=== PATIENT | female | born 1955 | race Caucasian/White ===

== ENCOUNTER 2018-11-30 14:56 | Emergency (ER) | payer OTHER, MEDICAID ==
[~2018-11-30] VITALS: Ht 162.6 cm; Wt 65.8 kg
[2018-11-30 14:56] VITALS: BP_SYST 135
[2018-11-30 15:47] LABS: BASOPHILS % (AUTO) 0.9 % (0.0-2.0); EOSINOPHILS # (AUTO) 0.1 K/uL (0.0-0.4); EOSINOPHILS % (AUTO) 2.5 % (0.0-4.0); HEMATOCRIT 36.4 % (36-48); HEMOGLOBIN 11.4 g/dL (12.0-16.0); LYMPHOCYTES # (AUTO) 0.9 K/uL (1.0-5.5); LYMPHOCYTES % (AUTO) 18.5 % (20.5-51.5); MEAN CORPUSCULAR HEMOGLOBIN 31 pg (27-31); MEAN CORPUSCULAR HGB CONC 31 % (32-36); MEAN CORPUSCULAR VOLUME 99 fL (79.0-98.0); MONOCYTES # (AUTO) 0.3 K/uL (0.0-1.0); NEUTROPHILS # (AUTO) 3.5 K/uL (1.8-7.7); NEUTROPHILS % (AUTO) 71.1 % (40.0-70.0); PLATELET COUNT (AUTO) 136 K/uL (130-430); RED BLOOD CELL COUNT(AUTO) 3.69 MIL/uL (4.2-6.2); RED CELL DISTRIBUTION WIDTH 18.7 % (9.0-15.0); WHITE BLOOD COUNT (AUTO) 4.9 K/uL (4.8-10.8)
[2018-11-30 15:52] LABS: ANION GAP 8 (5-15); CALCIUM 8.4 mg/dL (8.4-11.0); CHLORIDE 102 mmol/L (98-107); CREATININE 1.03 mg/dL (0.55-1.30); GLUCOSE 74 mg/dL (70-99); POTASSIUM 3.9 mmol/L (3.5-5.1); SODIUM SERUM 140 mmol/L (136-145); UREA NITROGEN, BLOOD 13 mg/dL (8-21)
[2018-11-30 15:58] LABS: GFR AFRICAN AMERICAN 69 mL/min (>90)
[2018-11-30 16:00] LABS: ALANINE AMINOTRANSFERASE 12 U/L (12-78); ALBUMIN 3.1 g/dL (3.4-4.8); ASPARTATE AMINOTRANSFERASE 29 U/L (10-37); TOTAL BILIRUBIN 0.7 mg/dL (0.0-1.0)
[2018-11-30 18:15] VITALS: BP_SYST 133
== END 2018-11-30 18:15 | disposition home or self-care (01) ==
LOC: SED 14:56
DX: G40.909 Epilepsy, unspecified, not intractable, without status epilepticus (principal); R21 Rash and other nonspecific skin eruption; R60.0 Localized edema; Z88.8 Allergy status to other drugs, medicaments and biological substances
CPT/HCPCS: 36415; 71045; 80053; 80164-TC; 82550-TC; 83735-TC; 84484; 85025; 93005; 99284

== ENCOUNTER 2020-07-21 17:14 | Inpatient (IN) | payer OTHER, MEDICAID ==
[~2020-07-21] VITALS: Ht 160 cm; Wt 87.5 kg
[2020-07-21 17:14] VITALS: BP_SYST 151
[~2020-07-21 17:14] MED LIST: AMIO200T66 PO; ASCO500T20 PO; BLOO-360 XX; CEFAZOLIN 2 GM IVPB PREMIX 50 ML IV ONE; DOCU250C14 PO; LR 1,000 ML IV.SOLN IV ONE; MEGE20TA6 PO; MIDAZOLAM HCL 5 MG/5 ML VIAL IVP ONE; MORP-92 PO; MORP15TA PO; MULT-1100 PO; PRO40 PO; PROPOFOL 200MG/ 20ML VIAL (DIPRIVAN) IV ONE; ROCURONIUM BROMIDE 10 MG/ML (ZEMURON) IV ONE; SEVOFLURANE 15 MIN GAS INH ONE; ePHEDrine sulfate 50 MG/ML VIAL IVP ONE; fentaNYL CITRATE/PF 100 MCG/2 ML AMP IVP ONE
[2020-07-21] MEDS ORDERED: ASPIRIN 325 MG TABLET PO ONE (17:30)
[2020-07-21 18:15] LABS: BILIRUBIN,URINE NEGATIVE (NEGATIVE); BLOOD, URINE 1+ (NEGATIVE); COLOR,URINE YELLOW (YELLOW); GLUCOSE,URINE NEGATIVE (NEGATIVE); KETONES,URINE NEGATIVE (NEGATIVE); LEUKOCYTE ESTERASE ,URINE 3+ (NEGATIVE); NITRITE, URINE NEGATIVE (NEGATIVE); PH,URINE 6.5 (5.0-8.0); PROTEIN URINE TRACE (NEGATIVE); UROBILINOGEN,URINE 0.2 (0.2-1.0)
[2020-07-21 18:23] LABS: BASOPHILS % (AUTO) 0.8 % (0.0-2.0); CALCIUM 8.1 mg/dL (8.4-11.0); CREATININE 0.86 mg/dL (0.55-1.30); EOSINOPHILS # (AUTO) 0.1 K/uL (0.0-0.4); EOSINOPHILS % (AUTO) 1.8 % (0.0-4.0); HEMOGLOBIN 9.5 g/dL (12.0-16.0); LYMPHOCYTES # (AUTO) 0.8 K/uL (1.0-5.5); MEAN CORPUSCULAR HEMOGLOBIN 29 pg (27-31); MEAN CORPUSCULAR HGB CONC 31 % (32-36); MEAN CORPUSCULAR VOLUME 94 fL (79.0-98.0); MONOCYTES # (AUTO) 0.5 K/uL (0.0-1.0); NEUTROPHILS % (AUTO) 68.4 % (40.0-70.0); PLATELET COUNT (AUTO) 161 K/uL (130-430); POTASSIUM 3.5 mmol/L (3.5-5.1); RED BLOOD CELL COUNT(AUTO) 3.31 MIL/uL (4.2-6.2); WHITE BLOOD COUNT (AUTO) 4.4 K/uL (4.8-10.8)
[2020-07-21 18:29] LABS: ALBUMIN 2.8 g/dL (3.4-4.8); PHOSPHORUS 3.5 mg/dL (2.7-4.5); TOTAL BILIRUBIN 0.6 mg/dL (0.0-1.0)
[2020-07-21 18:39] LABS: CLARITY/URINE HAZY (CLEAR)
[2020-07-21 18:41] LABS: BACTERIA,URINE MANY /HPF (None Seen); WBC,URINE >100 /HPF (0-3)
[2020-07-21 18:42] LABS: MUCUS,URINE 2+ /LPF (None Seen); YEAST,URINE Few /HPF (None Seen)
[2020-07-21] MEDS ORDERED: IOHEXOL 350 mgI/mL, 150 ML INFUS..BTL IV ONE (19:46)
[2020-07-21] MEDS ORDERED: VANCOMYCIN HCL 1,000 MG in NS 250 ML IV ONE (20:15)
[2020-07-21] MEDS ORDERED: PIPERACILLIN/TAZO 3.375 GM in NS 50 ML IV ONE (20:15)
[2020-07-21] MEDS ORDERED: PIPERACILLIN/TAZOBACTAM 3.375 GM/VIAL (ZOSYN) IV ONE (20:55)
[2020-07-21] MEDS ORDERED: VANCOMYCIN HCL 1000 MG/VIAL IV ONE (20:56)
[2020-07-21] MEDS ORDERED: ACET325C5 PO (21:25)
[2020-07-21] MEDS ORDERED: SENN8.6T19 PO (21:25)
[2020-07-21] MEDS ORDERED: MOM PO (21:25)
[2020-07-21] MEDS ORDERED: ACET-73 PO (21:25)
[2020-07-21] MEDS ORDERED: L.RH1CAP PO (21:25)
[2020-07-21 23:11] VITALS: BP_SYST 121
[2020-07-22 00:14] VITALS: BP_SYST 121
[2020-07-22] MEDS ORDERED: MORPHINE 2 MG/ML INJ. SYRINGE IVP PRN (00:15)
[2020-07-22] MEDS ORDERED: MORPHINE 2 MG/ML INJ. SYRINGE ONE ×2 (00:23→04:36)
[2020-07-22] MEDS: MORPHINE 2 MG/ML INJ. SYRINGE IVP PRN ×5 (00:27→20:49)
[2020-07-22 08:34] VITALS: BP_SYST 139
[2020-07-22] MEDS ORDERED: MILK OF MAGNESIA 30 ML UDC PO PRN (09:45)
[2020-07-22] MEDS ORDERED: NALOXONE HCL 0.4 MG/ML AMP (NARCAN) IVP PRN (09:45)
[2020-07-22] MEDS ORDERED: HYDROcodone/ACETAMIN 5-325 MG TAB (NORCO/ VICODIN) PO PRN (09:45)
[2020-07-22] MEDS ORDERED: AMIODARONE HCL 200 MG TABLET PO ONE (10:15)
[2020-07-22] MEDS ORDERED: DOCUSATE SODIUM 250 MG CAPSULE PO ONE (10:15)
[2020-07-22] MEDS ORDERED: PANTOPRAZOLE SODIUM 40 MG TAB PO ONE (10:15)
[2020-07-22] MEDS ORDERED: ASCORBIC ACID 500 MG TABLET PO ONE (10:15)
[2020-07-22 11:45] VITALS: BP_SYST 132
[2020-07-22 16:50] VITALS: BP_SYST 155
[2020-07-22 20:00] VITALS: BP_SYST 146
[2020-07-22] MEDS: ASCORBIC ACID 500 MG TABLET PO SCH (20:43)
[2020-07-22] MEDS: DOCUSATE SODIUM 250 MG CAPSULE PO SCH (20:43)
[2020-07-22] MEDS: SENNOSIDES 8.6 MG TABLET PO SCH (20:44)
[2020-07-22] MEDS ORDERED: IPRATROPIUM/ALBUTEROL SULFATE 3 ML AMPUL.NEB (DUONEB) INH PRN (22:30)
[2020-07-22] MEDS ORDERED: levoFLOXacin 500 MG TABLET PO SCH (23:15)
[2020-07-23 00:15] VITALS: BP_SYST 144
[2020-07-23] MEDS: MORPHINE 2 MG/ML INJ. SYRINGE IVP PRN ×5 (00:25→20:44)
[2020-07-23 05:32] VITALS: BP_SYST 155
[2020-07-23 08:00] VITALS: BP_SYST 141
[2020-07-23] MEDS: DOCUSATE SODIUM 250 MG CAPSULE PO SCH ×2 (08:16→20:32)
[2020-07-23] MEDS: PANTOPRAZOLE SODIUM 40 MG TAB PO SCH (08:16)
[2020-07-23] MEDS: AMIODARONE HCL 200 MG TABLET PO SCH (08:16)
[2020-07-23] MEDS: ASCORBIC ACID 500 MG TABLET PO SCH ×2 (08:16→20:31)
[2020-07-23] MEDS: cefTRIAXone 1 GM in D5W 50 ML IV SCH (11:07)
[2020-07-23 12:00] VITALS: BP_SYST 146
[2020-07-23 16:34] VITALS: BP_SYST 143
[2020-07-23 20:30] VITALS: BP_SYST 145
[2020-07-23] MEDS: MUPIROCIN 2% TOPICAL OINTMENT 22 GM NS SCH (20:31)
[2020-07-23] MEDS: SENNOSIDES 8.6 MG TABLET PO SCH (20:33)
[2020-07-23] MEDS: levETIRAcetam 500 MG TABLET PO SCH (20:37)
[2020-07-24 00:30] VITALS: BP_SYST 145
[2020-07-24] MEDS: MORPHINE 2 MG/ML INJ. SYRINGE IVP PRN ×5 (02:30→21:39)
[2020-07-24 08:08] VITALS: BP_SYST 140
[2020-07-24] MEDS: ASCORBIC ACID 500 MG TABLET PO SCH ×2 (08:16→21:40)
[2020-07-24] MEDS: DOCUSATE SODIUM 250 MG CAPSULE PO SCH ×2 (08:16→21:40)
[2020-07-24] MEDS: PANTOPRAZOLE SODIUM 40 MG TAB PO SCH (08:16)
[2020-07-24] MEDS: levETIRAcetam 500 MG TABLET PO SCH ×2 (08:16→21:40)
[2020-07-24] MEDS: AMIODARONE HCL 200 MG TABLET PO SCH (08:17)
[2020-07-24] MEDS: MUPIROCIN 2% TOPICAL OINTMENT 22 GM NS SCH ×2 (08:26→21:41)
[2020-07-24] MEDS: cefTRIAXone 1 GM in D5W 50 ML IV SCH (11:01)
[2020-07-24 12:43] VITALS: BP_SYST 136
[2020-07-24] MEDS ORDERED: ENOXAPARIN SODIUM 60 MG/0.6 ML SYRINGE SUBCUT ONE (14:30)
[2020-07-24 16:00] VITALS: BP_SYST 138
[2020-07-24] MEDS ORDERED: FLUCONAZOLE 200 MG TABLET (DIFLUCAN) PO ONE (20:15)
[2020-07-24] MEDS: SENNOSIDES 8.6 MG TABLET PO SCH (21:00)
[2020-07-25 00:38] VITALS: BP_SYST 120
[2020-07-25] MEDS: MORPHINE 2 MG/ML INJ. SYRINGE IVP PRN ×6 (01:33→23:40)
[2020-07-25 06:40] LABS: BASOPHILS # (AUTO) 0.1 K/uL (0.0-0.2); BASOPHILS % (AUTO) 1.3 % (0.0-2.0); EOSINOPHILS # (AUTO) 0.2 K/uL (0.0-0.4); EOSINOPHILS % (AUTO) 4.1 % (0.0-4.0); HEMATOCRIT 31.9 % (36-48); HEMOGLOBIN 9.7 g/dL (12.0-16.0); LYMPHOCYTES % (AUTO) 21.9 % (20.5-51.5); MEAN CORPUSCULAR HEMOGLOBIN 29 pg (27-31); MEAN CORPUSCULAR HGB CONC 30 % (32-36); MEAN CORPUSCULAR VOLUME 94 fL (79.0-98.0); MONOCYTES # (AUTO) 0.5 K/uL (0.0-1.0); MONOCYTES % (AUTO) 10.9 % (1.7-9.3); NEUTROPHILS # (AUTO) 2.7 K/uL (1.8-7.7); NEUTROPHILS % (AUTO) 61.8 % (40.0-70.0); PLATELET COUNT (AUTO) 176 K/uL (130-430); WHITE BLOOD COUNT (AUTO) 4.4 K/uL (4.8-10.8)
[2020-07-25 06:54] LABS: INR 1.2 (0.8-1.2); PROTHROMBIN TIME 11.9 SECS (9.5-12.5)
[2020-07-25 07:32] LABS: ALBUMIN 2.6 g/dL (3.4-4.8); CREATININE 0.73 mg/dL (0.55-1.30); POTASSIUM 3.4 mmol/L (3.5-5.1); TOTAL BILIRUBIN 0.5 mg/dL (0.0-1.0)
[2020-07-25 08:00] VITALS: BP_SYST 140
[2020-07-25] MEDS: PANTOPRAZOLE SODIUM 40 MG TAB PO SCH (08:17)
[2020-07-25] MEDS: ASCORBIC ACID 500 MG TABLET PO SCH ×2 (08:17→20:07)
[2020-07-25] MEDS: AMIODARONE HCL 200 MG TABLET PO SCH (08:17)
[2020-07-25] MEDS: levETIRAcetam 500 MG TABLET PO SCH ×2 (08:17→20:06)
[2020-07-25] MEDS: MUPIROCIN 2% TOPICAL OINTMENT 22 GM NS SCH ×2 (08:21→20:07)
[2020-07-25] MEDS: DOCUSATE SODIUM 250 MG CAPSULE PO SCH ×2 (08:21→20:09)
[2020-07-25 12:13] VITALS: BP_SYST 155
[2020-07-25] MEDS ORDERED: MORPHINE 2 MG/ML INJ. SYRINGE IVP PRN (15:30)
[2020-07-25 16:08] VITALS: BP_SYST 139
[2020-07-25] MEDS ORDERED: POTASSIUM CHLORIDE 20 MEQ TAB.PRT.SR PO ONE (16:20)
[2020-07-25 20:00] VITALS: BP_SYST 140
[2020-07-25] MEDS: SENNOSIDES 8.6 MG TABLET PO SCH (20:09)
[2020-07-26] VITALS (12 sets, daily range): BP systolic 131–152
[2020-07-26] MEDS: MORPHINE 2 MG/ML INJ. SYRINGE IVP PRN ×2 (04:01→09:07)
[2020-07-26 05:34] LABS: INR 1.2 (0.8-1.2)
[2020-07-26 06:04] LABS: PROTHROMBIN TIME 12.7 SECS (9.5-12.5)
[2020-07-26 06:47] LABS: BASOPHILS # (AUTO) 0.1 K/uL (0.0-0.2); BASOPHILS % (AUTO) 1.4 % (0.0-2.0); EOSINOPHILS # (AUTO) 0.1 K/uL (0.0-0.4); EOSINOPHILS % (AUTO) 2.6 % (0.0-4.0); HEMATOCRIT 32.8 % (36-48); HEMOGLOBIN 9.9 g/dL (12.0-16.0); LYMPHOCYTES # (AUTO) 0.9 K/uL (1.0-5.5); LYMPHOCYTES % (AUTO) 19.4 % (20.5-51.5); MEAN CORPUSCULAR HEMOGLOBIN 28 pg (27-31); MEAN CORPUSCULAR HGB CONC 30 % (32-36); MEAN CORPUSCULAR VOLUME 94 fL (79.0-98.0); MONOCYTES # (AUTO) 0.4 K/uL (0.0-1.0); MONOCYTES % (AUTO) 9.3 % (1.7-9.3); NEUTROPHILS # (AUTO) 3.1 K/uL (1.8-7.7); NEUTROPHILS % (AUTO) 67.3 % (40.0-70.0); PLATELET COUNT (AUTO) 211 K/uL (130-430); RED CELL DISTRIBUTION WIDTH 17.5 % (9.0-15.0); WHITE BLOOD COUNT (AUTO) 4.7 K/uL (4.8-10.8)
[2020-07-26 06:51] LABS: CREATININE 0.78 mg/dL (0.55-1.30)
[2020-07-26] MEDS ORDERED: THROMBIN (BOVINE) 5000 UNITS/ VIAL TP ONE (14:54)
[2020-07-26] MEDS ORDERED: fentaNYL CITRATE/PF 100 MCG/2 ML AMP IVP PRN (15:15)
[2020-07-26] MEDS ORDERED: ONDANSETRON HCL 4 MG/2 ML VIAL IVP PRN ×2 (15:15→16:30)
[2020-07-26] MEDS ORDERED: NALOXONE HCL 0.4 MG/ML AMP (NARCAN) IVP PRN ×4 (16:30)
[2020-07-26] MEDS: KCL 20 mEq in D5NS 1000 mL 1,000 ML IV SCH (16:30)
[2020-07-26] MEDS ORDERED: ACETAMINOPHEN 325 MG TABLET PO PRN (16:30)
[2020-07-26] MEDS ORDERED: HYDROmorphone 1 MG/ML INJ. CARTRIDGE IVP PRN (16:30)
[2020-07-26] MEDS ORDERED: ZOLPIDEM TARTRATE 5 MG TABLET PO PRN (16:30)
[2020-07-26] MEDS: fentaNYL CITRATE/PF 100 MCG/2 ML AMP IVP PRN ×2 (17:05→17:10)
[2020-07-26] MEDS ORDERED: fentaNYL CITRATE/PF 100 MCG/2 ML AMP ONE (17:05)
[2020-07-26] MEDS: CEFAZOLIN 2 GM IVPB PREMIX 50 ML IV SCH (18:10)
[2020-07-26] MEDS: HYDROmorphone 2 MG/ML VIAL IVP PRN ×2 (18:12→21:57)
[2020-07-26] MEDS: DOCUSATE SODIUM 100 MG CAPSULE PO SCH (21:00)
[2020-07-26] MEDS: ASCORBIC ACID 500 MG TABLET PO SCH (21:00)
[2020-07-26] MEDS: levETIRAcetam 500 MG TABLET PO SCH (21:00)
[2020-07-26] MEDS: SENNOSIDES 8.6 MG TABLET PO SCH (21:00)
[2020-07-26] MEDS: MUPIROCIN 2% TOPICAL OINTMENT 22 GM NS SCH (23:49)
[2020-07-27] VITALS (20 sets, daily range): BP systolic 115–146
[2020-07-27] MEDS: HYDROmorphone 1 MG/ML INJ. CARTRIDGE IVP PRN ×3 (00:20→21:20)
[2020-07-27] MEDS: CEFAZOLIN 2 GM IVPB PREMIX 50 ML IV SCH ×2 (00:30→08:48)
[2020-07-27] MEDS: KCL 20 mEq in D5NS 1000 mL 1,000 ML IV SCH ×3 (03:26→20:51)
[2020-07-27] MEDS: HYDROmorphone 2 MG/ML VIAL IVP PRN ×3 (03:35→14:23)
[2020-07-27 05:38] LABS: CALCIUM 7.9 mg/dL (8.4-11.0); CREATININE 1.1 mg/dL (0.55-1.30); POTASSIUM 4.5 mmol/L (3.5-5.1)
[2020-07-27 05:39] LABS: BASOPHILS # (AUTO) 0.1 K/uL (0.0-0.2); BASOPHILS % (AUTO) 0.6 % (0.0-2.0); EOSINOPHILS % (AUTO) 0.4 % (0.0-4.0); HEMATOCRIT 37.4 % (36-48); HEMOGLOBIN 11.1 g/dL (12.0-16.0); LYMPHOCYTES # (AUTO) 0.4 K/uL (1.0-5.5); MEAN CORPUSCULAR HEMOGLOBIN 28 pg (27-31); MEAN CORPUSCULAR HGB CONC 30 % (32-36); MEAN CORPUSCULAR VOLUME 95 fL (79.0-98.0); MONOCYTES # (AUTO) 0.7 K/uL (0.0-1.0); MONOCYTES % (AUTO) 7.5 % (1.7-9.3); NEUTROPHILS # (AUTO) 8.6 K/uL (1.8-7.7); NEUTROPHILS % (AUTO) 87.5 % (40.0-70.0); PLATELET COUNT (AUTO) 215 K/uL (130-430); RED BLOOD CELL COUNT(AUTO) 3.95 MIL/uL (4.2-6.2); RED CELL DISTRIBUTION WIDTH 18.2 % (9.0-15.0); WHITE BLOOD COUNT (AUTO) 9.8 K/uL (4.8-10.8)
[2020-07-27] MEDS: DOCUSATE SODIUM 100 MG CAPSULE PO SCH ×2 (08:48→20:49)
[2020-07-27] MEDS: ASCORBIC ACID 500 MG TABLET PO SCH ×2 (08:49→20:49)
[2020-07-27] MEDS: AMIODARONE HCL 200 MG TABLET PO SCH (08:49)
[2020-07-27] MEDS: PANTOPRAZOLE SODIUM 40 MG TAB PO SCH (08:49)
[2020-07-27] MEDS: levETIRAcetam 500 MG TABLET PO SCH ×2 (09:20→20:49)
[2020-07-27] MEDS: MUPIROCIN 2% TOPICAL OINTMENT 22 GM NS SCH ×2 (09:21→20:50)
[2020-07-27] MEDS ORDERED: CARVEDILOL 6.25 MG TABLET (COREG) PO ONE (11:15)
[2020-07-27] MEDS: SENNOSIDES 8.6 MG TABLET PO SCH (20:49)
[2020-07-27] MEDS: CARVEDILOL 6.25 MG TABLET (COREG) PO SCH (20:59)
[2020-07-28] VITALS: BP_SYST 106
[2020-07-28] MEDS: HYDROmorphone 1 MG/ML INJ. CARTRIDGE IVP PRN ×2 (03:30→20:41)
[2020-07-28] MEDS: methocarbamoL 500 MG TABLET PO PRN (05:49)
[2020-07-28] MEDS: KCL 20 mEq in D5NS 1000 mL 1,000 ML IV SCH ×2 (08:30→16:02)
[2020-07-28] MEDS: ASCORBIC ACID 500 MG TABLET PO SCH ×2 (08:45→20:28)
[2020-07-28] MEDS: CARVEDILOL 6.25 MG TABLET (COREG) PO SCH ×2 (08:47→20:29)
[2020-07-28] MEDS: DOCUSATE SODIUM 100 MG CAPSULE PO SCH ×2 (08:47→20:28)
[2020-07-28] MEDS: levETIRAcetam 500 MG TABLET PO SCH ×2 (08:48→20:28)
[2020-07-28] MEDS: AMIODARONE HCL 200 MG TABLET PO SCH (08:48)
[2020-07-28] MEDS: PANTOPRAZOLE SODIUM 40 MG TAB PO SCH (08:48)
[2020-07-28] MEDS: HYDROmorphone 2 MG/ML VIAL IVP PRN (08:51)
[2020-07-28] MEDS: MUPIROCIN 2% TOPICAL OINTMENT 22 GM NS SCH (08:58)
[2020-07-28] MEDS: HYDROcodone/ACETAMIN 10-325 MG TAB PO PRN (11:18)
[2020-07-28 19:45] VITALS: BP_SYST 105
[2020-07-28] MEDS: SENNOSIDES 8.6 MG TABLET PO SCH (20:28)
[2020-07-29 00:08] VITALS: BP_SYST 106
[2020-07-29] MEDS: KCL 20 mEq in D5NS 1000 mL 1,000 ML IV SCH ×2 (03:23→14:59)
[2020-07-29] MEDS: HYDROmorphone 1 MG/ML INJ. CARTRIDGE IVP PRN ×2 (03:27→08:58)
[2020-07-29 08:35] VITALS: BP_SYST 110
[2020-07-29] MEDS: ASCORBIC ACID 500 MG TABLET PO SCH ×2 (08:56→21:55)
[2020-07-29] MEDS: CARVEDILOL 6.25 MG TABLET (COREG) PO SCH ×2 (08:56→21:00)
[2020-07-29] MEDS: PANTOPRAZOLE SODIUM 40 MG TAB PO SCH (08:56)
[2020-07-29] MEDS: AMIODARONE HCL 200 MG TABLET PO SCH (08:56)
[2020-07-29] MEDS: levETIRAcetam 500 MG TABLET PO SCH ×2 (08:56→21:55)
[2020-07-29] MEDS: DOCUSATE SODIUM 100 MG CAPSULE PO SCH ×3 (09:00→21:55)
[2020-07-29 11:49] VITALS: BP_SYST 122
[2020-07-29 13:01] VITALS: BP_SYST 122
[2020-07-29] MEDS: HYDROcodone/ACETAMIN 10-325 MG TAB PO PRN ×3 (14:42→22:19)
[2020-07-29 16:02] VITALS: BP_SYST 108
[2020-07-29 20:00] VITALS: BP_SYST 98
[2020-07-29] MEDS: SENNOSIDES 8.6 MG TABLET PO SCH (21:55)
[2020-07-29 22:53] LABS: BILIRUBIN,URINE NEGATIVE (NEGATIVE); BLOOD, URINE 3+ (NEGATIVE); CLARITY/URINE SL CLOUDY (CLEAR); COLOR,URINE YELLOW (YELLOW); GLUCOSE,URINE NEGATIVE (NEGATIVE); KETONES,URINE TRACE (NEGATIVE); LEUKOCYTE ESTERASE ,URINE 1+ (NEGATIVE); NITRITE, URINE NEGATIVE (NEGATIVE); PROTEIN URINE 3+ (NEGATIVE); UROBILINOGEN,URINE 0.2 (0.2-1.0)
[2020-07-29 23:07] LABS: WBC,URINE 20-50 /HPF (0-3)
[2020-07-29 23:08] LABS: BACTERIA,URINE MANY /HPF (None Seen); YEAST,URINE Many /HPF (None Seen)
[2020-07-29 23:09] LABS: COARSE GRANULAR CASTS,URINE 0-10 /LPF (None Seen); MUCUS,URINE 1+ /LPF (None Seen)
[2020-07-30] MEDS: KCL 20 mEq in D5NS 1000 mL 1,000 ML IV SCH ×2 (00:52→10:51)
[2020-07-30] MEDS: HYDROmorphone 1 MG/ML INJ. CARTRIDGE IVP PRN (01:03)
[2020-07-30 01:11] VITALS: BP_SYST 108
[2020-07-30 08:08] VITALS: BP_SYST 97
[2020-07-30] MEDS: ASCORBIC ACID 500 MG TABLET PO SCH ×2 (08:53→21:40)
[2020-07-30] MEDS: PANTOPRAZOLE SODIUM 40 MG TAB PO SCH (08:53)
[2020-07-30] MEDS: levETIRAcetam 500 MG TABLET PO SCH ×2 (08:53→21:40)
[2020-07-30] MEDS: FLUCONAZOLE 100 MG TABLET (DIFLUCAN) PO SCH (08:53)
[2020-07-30] MEDS: CARVEDILOL 6.25 MG TABLET (COREG) PO SCH ×2 (09:00→21:00)
[2020-07-30] MEDS: AMIODARONE HCL 200 MG TABLET PO SCH ×2 (09:00→09:42)
[2020-07-30] MEDS: DOCUSATE SODIUM 100 MG CAPSULE PO SCH ×2 (09:00→21:40)
[2020-07-30] MEDS: levoFLOXacin 250 MG TABLET PO SCH (09:42)
[2020-07-30 09:47] LABS: BASOPHILS % (AUTO) 0.6 % (0.0-2.0); EOSINOPHILS # (AUTO) 0.1 K/uL (0.0-0.4); EOSINOPHILS % (AUTO) 1.2 % (0.0-4.0); HEMATOCRIT 36.6 % (36-48); HEMOGLOBIN 10.7 g/dL (12.0-16.0); LYMPHOCYTES % (AUTO) 14.8 % (20.5-51.5); MEAN CORPUSCULAR HEMOGLOBIN 28 pg (27-31); MEAN CORPUSCULAR HGB CONC 29 % (32-36); MEAN CORPUSCULAR VOLUME 97 fL (79.0-98.0); MONOCYTES # (AUTO) 0.5 K/uL (0.0-1.0); MONOCYTES % (AUTO) 7.3 % (1.7-9.3); NEUTROPHILS # (AUTO) 5.4 K/uL (1.8-7.7); NEUTROPHILS % (AUTO) 76.1 % (40.0-70.0); PLATELET COUNT (AUTO) 90 K/uL (130-430); RED BLOOD CELL COUNT(AUTO) 3.76 MIL/uL (4.2-6.2); RED CELL DISTRIBUTION WIDTH 18.1 % (9.0-15.0); WHITE BLOOD COUNT (AUTO) 7.1 K/uL (4.8-10.8)
[2020-07-30 10:08] LABS: ALBUMIN 2.3 g/dL (3.4-4.8); CALCIUM 7.6 mg/dL (8.4-11.0); CREATININE 0.9 mg/dL (0.55-1.30); POTASSIUM 5.6 mmol/L (3.5-5.1)
[2020-07-30] MEDS: HYDROmorphone 2 MG/ML VIAL IVP PRN (10:49)
[2020-07-30 12:06] VITALS: BP_SYST 98
[2020-07-30] MEDS: D5NS 1,000 ML IV SCH (14:30)
[2020-07-30 16:04] VITALS: BP_SYST 94
[2020-07-30 20:00] VITALS: BP_SYST 100
[2020-07-30] MEDS: SENNOSIDES 8.6 MG TABLET PO SCH (21:40)
[2020-07-31 00:17] VITALS: BP_SYST 115
[2020-07-31] MEDS: HYDROcodone/ACETAMIN 10-325 MG TAB PO PRN ×3 (01:00→09:28)
[2020-07-31] MEDS: D5NS 1,000 ML IV SCH (01:16)
[2020-07-31 06:33] LABS: BASOPHILS % (AUTO) 0.5 % (0.0-2.0); EOSINOPHILS # (AUTO) 0.1 K/uL (0.0-0.4); EOSINOPHILS % (AUTO) 0.8 % (0.0-4.0); HEMATOCRIT 34.2 % (36-48); LYMPHOCYTES # (AUTO) 0.8 K/uL (1.0-5.5); LYMPHOCYTES % (AUTO) 10.4 % (20.5-51.5); MEAN CORPUSCULAR HEMOGLOBIN 28 pg (27-31); MEAN CORPUSCULAR HGB CONC 29 % (32-36); MEAN CORPUSCULAR VOLUME 96 fL (79.0-98.0); MONOCYTES # (AUTO) 0.5 K/uL (0.0-1.0); NEUTROPHILS % (AUTO) 81.3 % (40.0-70.0); PLATELET COUNT (AUTO) 100 K/uL (130-430); RED BLOOD CELL COUNT(AUTO) 3.56 MIL/uL (4.2-6.2); RED CELL DISTRIBUTION WIDTH 17.6 % (9.0-15.0); WHITE BLOOD COUNT (AUTO) 7.3 K/uL (4.8-10.8)
[2020-07-31] MEDS: methocarbamoL 500 MG TABLET PO PRN (06:42)
[2020-07-31 07:08] LABS: CALCIUM 7.5 mg/dL (8.4-11.0); CREATININE 0.86 mg/dL (0.55-1.30); POTASSIUM 5.5 mmol/L (3.5-5.1)
[2020-07-31 08:00] VITALS: BP_SYST 97
[2020-07-31] MEDS: DOCUSATE SODIUM 100 MG CAPSULE PO SCH ×2 (08:48→21:00)
[2020-07-31] MEDS: levETIRAcetam 500 MG TABLET PO SCH ×2 (08:48→21:10)
[2020-07-31] MEDS: ASCORBIC ACID 500 MG TABLET PO SCH ×2 (08:48→21:10)
[2020-07-31] MEDS: FLUCONAZOLE 100 MG TABLET (DIFLUCAN) PO SCH (08:48)
[2020-07-31] MEDS: CARVEDILOL 6.25 MG TABLET (COREG) PO SCH ×2 (08:49→21:13)
[2020-07-31] MEDS: AMIODARONE HCL 200 MG TABLET PO SCH (08:49)
[2020-07-31] MEDS ORDERED: AMIODARONE HCL 200 MG TABLET PO ONE (09:00)
[2020-07-31] MEDS: PANTOPRAZOLE SODIUM 40 MG TAB PO SCH (09:27)
[2020-07-31] MEDS: levoFLOXacin 250 MG TABLET PO SCH (10:23)
[2020-07-31 12:04] VITALS: BP_SYST 94
[2020-07-31 16:03] VITALS: BP_SYST 100
[2020-07-31 20:30] VITALS: BP_SYST 98
[2020-07-31] MEDS: SENNOSIDES 8.6 MG TABLET PO SCH (21:00)
[2020-08-01 00:07] VITALS: BP_SYST 99
[2020-08-01] MEDS: HYDROcodone/ACETAMIN 10-325 MG TAB PO PRN ×2 (04:22→09:25)
[2020-08-01 08:00] VITALS: BP_SYST 113
[2020-08-01 08:31] LABS: CALCIUM 7.3 mg/dL (8.4-11.0); CREATININE 0.86 mg/dL (0.55-1.30); POTASSIUM 5.4 mmol/L (3.5-5.1)
[2020-08-01 08:43] LABS: BASOPHILS # (AUTO) 0.1 K/uL (0.0-0.2); BASOPHILS % (AUTO) 1.3 % (0.0-2.0); EOSINOPHILS # (AUTO) 0.1 K/uL (0.0-0.4); EOSINOPHILS % (AUTO) 0.9 % (0.0-4.0); HEMATOCRIT 31.2 % (36-48); HEMOGLOBIN 9.2 g/dL (12.0-16.0); LYMPHOCYTES # (AUTO) 0.8 K/uL (1.0-5.5); MEAN CORPUSCULAR HEMOGLOBIN 28 pg (27-31); MEAN CORPUSCULAR HGB CONC 30 % (32-36); MEAN CORPUSCULAR VOLUME 95 fL (79.0-98.0); MONOCYTES # (AUTO) 0.7 K/uL (0.0-1.0); MONOCYTES % (AUTO) 9.6 % (1.7-9.3); NEUTROPHILS # (AUTO) 5.3 K/uL (1.8-7.7); NEUTROPHILS % (AUTO) 76.2 % (40.0-70.0); PLATELET COUNT (AUTO) 89 K/uL (130-430); RED BLOOD CELL COUNT(AUTO) 3.28 MIL/uL (4.2-6.2); RED CELL DISTRIBUTION WIDTH 17.9 % (9.0-15.0); WHITE BLOOD COUNT (AUTO) 6.9 K/uL (4.8-10.8)
[2020-08-01] MEDS: DOCUSATE SODIUM 100 MG CAPSULE PO SCH ×3 (09:00→21:43)
[2020-08-01] MEDS: FLUCONAZOLE 100 MG TABLET (DIFLUCAN) PO SCH (09:24)
[2020-08-01] MEDS: levoFLOXacin 250 MG TABLET PO SCH (09:24)
[2020-08-01] MEDS: ASCORBIC ACID 500 MG TABLET PO SCH ×2 (09:24→21:43)
[2020-08-01] MEDS: levETIRAcetam 500 MG TABLET PO SCH ×2 (09:24→21:43)
[2020-08-01] MEDS: PANTOPRAZOLE SODIUM 40 MG TAB PO SCH (09:25)
[2020-08-01] MEDS: CARVEDILOL 6.25 MG TABLET (COREG) PO SCH ×2 (09:25→21:00)
[2020-08-01] MEDS: AMIODARONE HCL 200 MG TABLET PO SCH (09:25)
[2020-08-01 14:36] VITALS: BP_SYST 97
[2020-08-01 16:00] VITALS: BP_SYST 94
[2020-08-01 16:30] VITALS: BP_SYST 94
[2020-08-01] MEDS: HYDROmorphone 1 MG/ML INJ. CARTRIDGE IVP PRN (17:45)
[2020-08-01 20:00] VITALS: BP_SYST 92
[2020-08-01] MEDS: SENNOSIDES 8.6 MG TABLET PO SCH (21:43)
[2020-08-01] MEDS ORDERED: NACL 0.9% 1,000 ML IV ONE (23:30)
[2020-08-02 00:34] LABS: CALCIUM 7.4 mg/dL (8.4-11.0); CREATININE 0.97 mg/dL (0.55-1.30); POTASSIUM 5.6 mmol/L (3.5-5.1)
[2020-08-02 00:40] LABS: TOTAL BILIRUBIN 1.2 mg/dL (0.0-1.0)
[2020-08-02 01:30] LABS: BASOPHILS % (AUTO) 0.6 % (0.0-2.0); EOSINOPHILS # (AUTO) 0.1 K/uL (0.0-0.4); EOSINOPHILS % (AUTO) 0.8 % (0.0-4.0); HEMATOCRIT 32.2 % (36-48); HEMOGLOBIN 9.4 g/dL (12.0-16.0); LYMPHOCYTES # (AUTO) 0.9 K/uL (1.0-5.5); LYMPHOCYTES % (AUTO) 11.4 % (20.5-51.5); MEAN CORPUSCULAR HEMOGLOBIN 28 pg (27-31); MEAN CORPUSCULAR HGB CONC 29 % (32-36); MEAN CORPUSCULAR VOLUME 96 fL (79.0-98.0); MONOCYTES # (AUTO) 0.7 K/uL (0.0-1.0); MONOCYTES % (AUTO) 9.1 % (1.7-9.3); NEUTROPHILS # (AUTO) 5.9 K/uL (1.8-7.7); NEUTROPHILS % (AUTO) 78.1 % (40.0-70.0); PLATELET COUNT (AUTO) 109 K/uL (130-430); RED BLOOD CELL COUNT(AUTO) 3.34 MIL/uL (4.2-6.2); RED CELL DISTRIBUTION WIDTH 17.8 % (9.0-15.0); WHITE BLOOD COUNT (AUTO) 7.6 K/uL (4.8-10.8)
[2020-08-02 06:21] LABS: BASOPHILS % (AUTO) 0.5 % (0.0-2.0); EOSINOPHILS # (AUTO) 0.1 K/uL (0.0-0.4); EOSINOPHILS % (AUTO) 0.8 % (0.0-4.0); HEMATOCRIT 31.7 % (36-48); HEMOGLOBIN 9.4 g/dL (12.0-16.0); LYMPHOCYTES # (AUTO) 0.9 K/uL (1.0-5.5); LYMPHOCYTES % (AUTO) 12.3 % (20.5-51.5); MEAN CORPUSCULAR HEMOGLOBIN 28 pg (27-31); MEAN CORPUSCULAR HGB CONC 30 % (32-36); MEAN CORPUSCULAR VOLUME 96 fL (79.0-98.0); MONOCYTES # (AUTO) 0.7 K/uL (0.0-1.0); MONOCYTES % (AUTO) 9.8 % (1.7-9.3); NEUTROPHILS # (AUTO) 5.6 K/uL (1.8-7.7); NEUTROPHILS % (AUTO) 76.6 % (40.0-70.0); PLATELET COUNT (AUTO) 103 K/uL (130-430); RED BLOOD CELL COUNT(AUTO) 3.31 MIL/uL (4.2-6.2); RED CELL DISTRIBUTION WIDTH 17.9 % (9.0-15.0); WHITE BLOOD COUNT (AUTO) 7.4 K/uL (4.8-10.8)
[2020-08-02 07:28] LABS: CALCIUM 7.5 mg/dL (8.4-11.0); CREATININE 0.94 mg/dL (0.55-1.30); POTASSIUM 5.6 mmol/L (3.5-5.1)
[2020-08-02 07:54] VITALS: BP_SYST 97
[2020-08-02] MEDS: levETIRAcetam 500 MG TABLET PO SCH ×2 (08:40→21:11)
[2020-08-02] MEDS: FLUCONAZOLE 100 MG TABLET (DIFLUCAN) PO SCH (08:40)
[2020-08-02] MEDS: PANTOPRAZOLE SODIUM 40 MG TAB PO SCH (08:40)
[2020-08-02] MEDS: ASCORBIC ACID 500 MG TABLET PO SCH ×2 (08:40→21:11)
[2020-08-02] MEDS: DOCUSATE SODIUM 100 MG CAPSULE PO SCH ×2 (08:40→21:11)
[2020-08-02] MEDS: CARVEDILOL 6.25 MG TABLET (COREG) PO SCH ×2 (09:00→21:00)
[2020-08-02] MEDS: AMIODARONE HCL 200 MG TABLET PO SCH ×2 (09:00→15:17)
[2020-08-02] MEDS: HYDROcodone/ACETAMIN 10-325 MG TAB PO PRN (09:04)
[2020-08-02] MEDS: levoFLOXacin 250 MG TABLET PO SCH (11:04)
[2020-08-02 12:00] VITALS: BP_SYST 93
[2020-08-02 16:00] VITALS: BP_SYST 110; BP_SYST 97
[2020-08-02 20:00] VITALS: BP_SYST 115
[2020-08-02] MEDS: SENNOSIDES 8.6 MG TABLET PO SCH (21:11)
[2020-08-03 00:04] VITALS: BP_SYST 125
[2020-08-03 07:49] VITALS: BP_SYST 111
[2020-08-03] MEDS: DOCUSATE SODIUM 100 MG CAPSULE PO SCH ×2 (09:00→21:00)
[2020-08-03] MEDS: HYDROcodone/ACETAMIN 10-325 MG TAB PO PRN (09:07)
[2020-08-03] MEDS: AMIODARONE HCL 200 MG TABLET PO SCH (09:08)
[2020-08-03] MEDS: levETIRAcetam 500 MG TABLET PO SCH ×2 (09:08→21:29)
[2020-08-03] MEDS: ASCORBIC ACID 500 MG TABLET PO SCH ×2 (09:08→21:29)
[2020-08-03] MEDS: PANTOPRAZOLE SODIUM 40 MG TAB PO SCH (09:08)
[2020-08-03] MEDS: FLUCONAZOLE 100 MG TABLET (DIFLUCAN) PO SCH (09:09)
[2020-08-03] MEDS: CARVEDILOL 6.25 MG TABLET (COREG) PO SCH ×2 (09:09→21:00)
[2020-08-03] MEDS: levoFLOXacin 250 MG TABLET PO SCH (11:20)
[2020-08-03 12:00] VITALS: BP_SYST 115
[2020-08-03 16:03] VITALS: BP_SYST 112
[2020-08-03 20:00] VITALS: BP_SYST 95
[2020-08-03] MEDS: SENNOSIDES 8.6 MG TABLET PO SCH (21:00)
[2020-08-04 00:02] VITALS: BP_SYST 111
[2020-08-04 07:57] LABS: BASOPHILS % (AUTO) 0.3 % (0.0-2.0); EOSINOPHILS # (AUTO) 0.1 K/uL (0.0-0.4); HEMATOCRIT 31.9 % (36-48); HEMOGLOBIN 9.5 g/dL (12.0-16.0); LYMPHOCYTES # (AUTO) 0.8 K/uL (1.0-5.5); LYMPHOCYTES % (AUTO) 13.5 % (20.5-51.5); MEAN CORPUSCULAR HEMOGLOBIN 28 pg (27-31); MEAN CORPUSCULAR HGB CONC 30 % (32-36); MEAN CORPUSCULAR VOLUME 95 fL (79.0-98.0); MONOCYTES # (AUTO) 0.6 K/uL (0.0-1.0); MONOCYTES % (AUTO) 9.6 % (1.7-9.3); NEUTROPHILS # (AUTO) 4.3 K/uL (1.8-7.7); NEUTROPHILS % (AUTO) 75.6 % (40.0-70.0); PLATELET COUNT (AUTO) 92 K/uL (130-430); RED BLOOD CELL COUNT(AUTO) 3.34 MIL/uL (4.2-6.2); RED CELL DISTRIBUTION WIDTH 18.7 % (9.0-15.0); WHITE BLOOD COUNT (AUTO) 5.8 K/uL (4.8-10.8)
[2020-08-04 08:00] VITALS: BP_SYST 110
[2020-08-04] MEDS: ASCORBIC ACID 500 MG TABLET PO SCH ×2 (08:02→20:38)
[2020-08-04] MEDS: PANTOPRAZOLE SODIUM 40 MG TAB PO SCH (08:03)
[2020-08-04] MEDS: levETIRAcetam 500 MG TABLET PO SCH ×2 (08:03→20:38)
[2020-08-04] MEDS: DOCUSATE SODIUM 100 MG CAPSULE PO SCH ×2 (08:04→21:00)
[2020-08-04] MEDS: FLUCONAZOLE 100 MG TABLET (DIFLUCAN) PO SCH (08:04)
[2020-08-04] MEDS: HYDROcodone/ACETAMIN 10-325 MG TAB PO PRN ×2 (08:04→13:13)
[2020-08-04] MEDS: CARVEDILOL 6.25 MG TABLET (COREG) PO SCH ×2 (08:05→20:37)
[2020-08-04] MEDS: AMIODARONE HCL 200 MG TABLET PO SCH (08:05)
[2020-08-04 08:51] LABS: CALCIUM 7.7 mg/dL (8.4-11.0); CREATININE 0.7 mg/dL (0.55-1.30); POTASSIUM 4.9 mmol/L (3.5-5.1)
[2020-08-04 08:54] VITALS: BP_SYST 111
[2020-08-04] MEDS: levoFLOXacin 250 MG TABLET PO SCH (09:02)
[2020-08-04 12:31] VITALS: BP_SYST 107
[2020-08-04 16:12] VITALS: BP_SYST 101
[2020-08-04 20:00] VITALS: BP_SYST 117
[2020-08-04] MEDS: SENNOSIDES 8.6 MG TABLET PO SCH (21:00)
[2020-08-05] VITALS: BP_SYST 116
[2020-08-05] MEDS ORDERED: HYDROcodone/ACETAMIN 10-325 MG TAB PO PRN (05:15)
[2020-08-05] MEDS: HYDROcodone/ACETAMIN 10-325 MG TAB PO PRN (05:36)
[2020-08-05] MEDS ORDERED: HYDROcodone/ACETAMIN 10-325 MG TAB ONE (05:37)
[2020-08-05 08:00] VITALS: BP_SYST 102
[2020-08-05] MEDS: ASCORBIC ACID 500 MG TABLET PO SCH ×2 (08:17→20:38)
[2020-08-05] MEDS: FLUCONAZOLE 100 MG TABLET (DIFLUCAN) PO SCH (08:17)
[2020-08-05] MEDS: DOCUSATE SODIUM 100 MG CAPSULE PO SCH ×2 (08:17→20:49)
[2020-08-05] MEDS: AMIODARONE HCL 200 MG TABLET PO SCH (08:17)
[2020-08-05] MEDS: PANTOPRAZOLE SODIUM 40 MG TAB PO SCH (08:17)
[2020-08-05] MEDS: levETIRAcetam 500 MG TABLET PO SCH ×2 (08:17→20:38)
[2020-08-05] MEDS: CARVEDILOL 6.25 MG TABLET (COREG) PO SCH ×2 (08:19→20:49)
[2020-08-05] MEDS: levoFLOXacin 250 MG TABLET PO SCH (09:00)
[2020-08-05] MEDS ORDERED: FUROSEMIDE 20 MG TABLET PO ONE (09:45)
[2020-08-05 12:32] LABS: BASOPHILS % (AUTO) 0.5 % (0.0-2.0); EOSINOPHILS # (AUTO) 0.1 K/uL (0.0-0.4); EOSINOPHILS % (AUTO) 1.4 % (0.0-4.0); HEMATOCRIT 33.5 % (36-48); HEMOGLOBIN 9.8 g/dL (12.0-16.0); MEAN CORPUSCULAR HEMOGLOBIN 28 pg (27-31); MEAN CORPUSCULAR HGB CONC 29 % (32-36); MEAN CORPUSCULAR VOLUME 95 fL (79.0-98.0); MONOCYTES # (AUTO) 0.5 K/uL (0.0-1.0); MONOCYTES % (AUTO) 7.3 % (1.7-9.3); NEUTROPHILS # (AUTO) 4.8 K/uL (1.8-7.7); NEUTROPHILS % (AUTO) 75.8 % (40.0-70.0); PLATELET COUNT (AUTO) 107 K/uL (130-430); RED BLOOD CELL COUNT(AUTO) 3.53 MIL/uL (4.2-6.2); RED CELL DISTRIBUTION WIDTH 18.5 % (9.0-15.0); WHITE BLOOD COUNT (AUTO) 6.3 K/uL (4.8-10.8)
[2020-08-05 12:45] VITALS: BP_SYST 111
[2020-08-05 13:00] LABS: ALBUMIN 2.1 g/dL (3.4-4.8); CALCIUM 7.5 mg/dL (8.4-11.0); CREATININE 0.74 mg/dL (0.55-1.30); POTASSIUM 5.1 mmol/L (3.5-5.1); TOTAL BILIRUBIN 0.6 mg/dL (0.0-1.0)
[2020-08-05] MEDS: NACL 0.9% 1,000 ML IV SCH (14:55)
[2020-08-05 15:25] VITALS: BP_SYST 95
[2020-08-05 20:45] VITALS: BP_SYST 117
[2020-08-05] MEDS: SENNOSIDES 8.6 MG TABLET PO SCH (20:50)
[2020-08-06 01:20] VITALS: BP_SYST 104
[2020-08-06] MEDS: NACL 0.9% 1,000 ML IV SCH ×2 (05:13→14:57)
[2020-08-06 06:29] LABS: ALBUMIN 1.8 g/dL (3.4-4.8); BASOPHILS % (AUTO) 0.4 % (0.0-2.0); CALCIUM 7.1 mg/dL (8.4-11.0); CREATININE 0.72 mg/dL (0.55-1.30); EOSINOPHILS # (AUTO) 0.1 K/uL (0.0-0.4); EOSINOPHILS % (AUTO) 1.5 % (0.0-4.0); HEMATOCRIT 30.6 % (36-48); LYMPHOCYTES # (AUTO) 0.5 K/uL (1.0-5.5); LYMPHOCYTES % (AUTO) 9.8 % (20.5-51.5); MEAN CORPUSCULAR HEMOGLOBIN 28 pg (27-31); MEAN CORPUSCULAR HGB CONC 29 % (32-36); MEAN CORPUSCULAR VOLUME 96 fL (79.0-98.0); MONOCYTES # (AUTO) 0.4 K/uL (0.0-1.0); MONOCYTES % (AUTO) 8.1 % (1.7-9.3); NEUTROPHILS # (AUTO) 4.4 K/uL (1.8-7.7); NEUTROPHILS % (AUTO) 80.2 % (40.0-70.0); PHOSPHORUS 3.3 mg/dL (2.7-4.5); PLATELET COUNT (AUTO) 91 K/uL (130-430); POTASSIUM 4.5 mmol/L (3.5-5.1); RED BLOOD CELL COUNT(AUTO) 3.19 MIL/uL (4.2-6.2); RED CELL DISTRIBUTION WIDTH 18.6 % (9.0-15.0); TOTAL BILIRUBIN 0.6 mg/dL (0.0-1.0); WHITE BLOOD COUNT (AUTO) 5.5 K/uL (4.8-10.8)
[2020-08-06 08:00] VITALS: BP_SYST 90
[2020-08-06] MEDS: DOCUSATE SODIUM 100 MG CAPSULE PO SCH ×3 (09:00→20:31)
[2020-08-06] MEDS: AMIODARONE HCL 200 MG TABLET PO SCH (09:00)
[2020-08-06] MEDS: CARVEDILOL 6.25 MG TABLET (COREG) PO SCH ×2 (09:00→21:04)
[2020-08-06] MEDS: ASCORBIC ACID 500 MG TABLET PO SCH ×2 (09:15→20:31)
[2020-08-06] MEDS: PANTOPRAZOLE SODIUM 40 MG TAB PO SCH (09:15)
[2020-08-06] MEDS: levETIRAcetam 500 MG TABLET PO SCH ×2 (09:15→20:31)
[2020-08-06] MEDS: FUROSEMIDE 20 MG TABLET PO SCH (09:16)
[2020-08-06] MEDS: HYDROcodone/ACETAMIN 10-325 MG TAB PO PRN ×2 (09:49→16:28)
[2020-08-06 12:00] VITALS: BP_SYST 95
[2020-08-06 15:22] VITALS: BP_SYST 93
[2020-08-06] MEDS: SENNOSIDES 8.6 MG TABLET PO SCH (20:31)
[2020-08-06 20:45] VITALS: BP_SYST 119
[2020-08-07 01:02] VITALS: BP_SYST 133
[2020-08-07 07:45] VITALS: BP_SYST 90
[2020-08-07] MEDS: CARVEDILOL 6.25 MG TABLET (COREG) PO SCH (09:00)
[2020-08-07] MEDS: DOCUSATE SODIUM 100 MG CAPSULE PO SCH ×2 (09:00→09:05)
[2020-08-07] MEDS: PANTOPRAZOLE SODIUM 40 MG TAB PO SCH (09:03)
[2020-08-07] MEDS: AMIODARONE HCL 200 MG TABLET PO SCH (09:03)
[2020-08-07] MEDS: FUROSEMIDE 20 MG TABLET PO SCH (09:04)
[2020-08-07] MEDS: levETIRAcetam 500 MG TABLET PO SCH (09:04)
[2020-08-07] MEDS: ASCORBIC ACID 500 MG TABLET PO SCH (09:04)
[2020-08-07] MEDS: HYDROcodone/ACETAMIN 10-325 MG TAB PO PRN (10:10)
[2020-08-07 11:22] VITALS: BP_SYST 116
[2020-08-07 11:34] VITALS: BP_SYST 122
[2020-08-07 15:08] VITALS: BP_SYST 122
[2020-08-20] MEDS ORDERED: ACYC-133 PO (16:16)
[2020-08-20] MEDS ORDERED: VANC750P14 IV (16:29)
[2020-08-20] MEDS ORDERED: LEVO750T45 PO (16:30)
[2020-08-23] MEDS ORDERED: SACC250C3 PO (19:46)
[2020-08-25] MEDS ORDERED: ACET1TAB23 PO ×2 (15:03)
== END 2020-08-07 16:30 | DRG 459 ==
LOC: SED 17:14 → STU 21:05 → SIC 07-26 15:44 → STU 07-27 18:03
PROVIDERS: ADMIT Internal Medicine; ATTEND Internal Medicine
PROC: 4A10X4Z Monitoring of Central Nervous Electrical Activity, External Approach (ICD-10-PCS; 2020-07-26)
PROC: 0RG7071 Fusion of 2 to 7 Thoracic Vertebral Joints with Autologous Tissue Substitute, Posterior Approach, Posterior Column, Open Approach (ICD-10-PCS; principal; 2020-08-05)
PROC: 0RGA071 Fusion of Thoracolumbar Vertebral Joint with Autologous Tissue Substitute, Posterior Approach, Posterior Column, Open Approach (ICD-10-PCS; 2020-08-05)
PROC: 4A11X4G Monitoring of Peripheral Nervous Electrical Activity, Intraoperative, External Approach (ICD-10-PCS; 2020-08-05)
PROC: 0SG0071 Fusion of Lumbar Vertebral Joint with Autologous Tissue Substitute, Posterior Approach, Posterior Column, Open Approach (ICD-10-PCS; 2020-08-05)
DX: S22.081A Stable burst fracture of T11-T12 vertebra, initial encounter for closed fracture (principal); E43 Unspecified severe protein-calorie malnutrition; T82.514A Breakdown (mechanical) of infusion catheter, initial encounter; S32.009A Unspecified fracture of unspecified lumbar vertebra, initial encounter for closed fracture; N39.0 Urinary tract infection, site not specified; J98.11 Atelectasis; R07.9 Chest pain, unspecified; I25.10 Atherosclerotic heart disease of native coronary artery without angina pectoris; G40.909 Epilepsy, unspecified, not intractable, without status epilepticus; J44.9 Chronic obstructive pulmonary disease, unspecified; I25.5 Ischemic cardiomyopathy; G83.84 Todd's paralysis (postepileptic); Y83.8 Other surgical procedures as the cause of abnormal reaction of the patient, or of later complication, without mention of misadventure at the time of the procedure; Z20.822 Contact with and (suspected) exposure to COVID-19; Z88.8 Allergy status to other drugs, medicaments and biological substances; Z79.899 Other long term (current) drug therapy; Z86.73 Personal history of transient ischemic attack (TIA), and cerebral infarction without residual deficits; Z87.81 Personal history of (healed) traumatic fracture; Z87.891 Personal history of nicotine dependence; Z74.01 Bed confinement status; Z93.3 Colostomy status; Z95.1 Presence of aortocoronary bypass graft; Z95.810 Presence of automatic (implantable) cardiac defibrillator; Y92.89 Other specified places as the place of occurrence of the external cause; Z68.34 Body mass index [BMI] 34.0-34.9, adult
CPT/HCPCS: 36415; 71045; 71275; 76000; 76376; 80048; 80053; 81000; 82962; 83605; 83735; 83880; 84100; 84484; 85025; 85379; 85610-TC; 86886; 86900; 86901; 86920; 87040-TC; 87081; 87086; 93005; 93306; 93970; 94760; 95816; 96365; 96366; 96367; 97110-GP; 97530-GP; A4649; C1713; G0378; J0690; J0696; J1170; J1650; J2250; J2270; J2405; J2543; J2704; J3010; J3370; J7030; J7040; J7042; J7060; J7120; Q9967

== ENCOUNTER 2020-09-26 00:22 | Emergency (ER) | payer OTHER, MEDICAID ==
[~2020-09-26 00:22] MED LIST changes: +ACET1TAB23 PO; +ACET325C5 PO; +ACYC-133 PO; -BLOO-360 XX; -CEFAZOLIN 2 GM IVPB PREMIX 50 ML IV ONE; +LEVO750T45 PO; -LR 1,000 ML IV.SOLN IV ONE; -MIDAZOLAM HCL 5 MG/5 ML VIAL IVP ONE; +MOM PO; -PROPOFOL 200MG/ 20ML VIAL (DIPRIVAN) IV ONE; -ROCURONIUM BROMIDE 10 MG/ML (ZEMURON) IV ONE; +SACC250C3 PO; +SENN8.6T19 PO; -SEVOFLURANE 15 MIN GAS INH ONE; -ePHEDrine sulfate 50 MG/ML VIAL IVP ONE; -fentaNYL CITRATE/PF 100 MCG/2 ML AMP IVP ONE
[2020-09-26 00:23] VITALS: BP_SYST 133
[2020-09-26] MEDS ORDERED: BISA10SU61 RC (00:41)
[2020-09-26] MEDS ORDERED: L.RH1CAP PO (00:41)
[2020-09-26] MEDS ORDERED: LEVE1000 PO (00:41)
[2020-09-26 01:29] LABS: BILIRUBIN,URINE NEGATIVE (NEGATIVE); BLOOD, URINE 1+ (NEGATIVE); CLARITY/URINE SL CLOUDY (CLEAR); COLOR,URINE YELLOW (YELLOW); GLUCOSE,URINE NEGATIVE (NEGATIVE); KETONES,URINE NEGATIVE (NEGATIVE); LEUKOCYTE ESTERASE ,URINE 3+ (NEGATIVE); NITRITE, URINE POSITIVE (NEGATIVE); PH,URINE 6.5 (5.0-8.0); PROTEIN URINE TRACE (NEGATIVE); UROBILINOGEN,URINE 0.2 (0.2-1.0)
[2020-09-26 01:32] LABS: BASOPHILS % (AUTO) 1.2 % (0.0-2.0); EOSINOPHILS # (AUTO) 0.1 K/uL (0.0-0.4); EOSINOPHILS % (AUTO) 3.5 % (0.0-4.0); HEMATOCRIT 36.4 % (36-48); HEMOGLOBIN 11.3 g/dL (12.0-16.0); LYMPHOCYTES # (AUTO) 0.8 K/uL (1.0-5.5); LYMPHOCYTES % (AUTO) 20.6 % (20.5-51.5); MEAN CORPUSCULAR HEMOGLOBIN 32 pg (27-31); MEAN CORPUSCULAR HGB CONC 31 % (32-36); MEAN CORPUSCULAR VOLUME 103 fL (79.0-98.0); MONOCYTES # (AUTO) 0.4 K/uL (0.0-1.0); MONOCYTES % (AUTO) 9.4 % (1.7-9.3); NEUTROPHILS # (AUTO) 2.5 K/uL (1.8-7.7); NEUTROPHILS % (AUTO) 65.3 % (40.0-70.0); PLATELET COUNT (AUTO) 142 K/uL (130-430); RED BLOOD CELL COUNT(AUTO) 3.52 MIL/uL (4.2-6.2); RED CELL DISTRIBUTION WIDTH 22.9 % (9.0-15.0); WHITE BLOOD COUNT (AUTO) 3.8 K/uL (4.8-10.8)
[2020-09-26 01:39] LABS: CALCIUM 8.1 mg/dL (8.4-11.0); CREATININE 0.69 mg/dL (0.55-1.30); POTASSIUM 3.8 mmol/L (3.5-5.1)
[2020-09-26 01:42] LABS: BARBITURATE, URINE NEGATIVE (NEG <=200); BENZODIAZEPINE, URINE NEGATIVE (NEG <=150); CANNABINOID, URINE NEGATIVE (NEG <=50); COCAINE, URINE NEGATIVE (NEG <=150); METHAMPHETAMINES SCREEN,URINE NEGATIVE (NEG <=500); OPIATE, URINE POSITIVE (NEG <=100); PHENCYCLIDINE SCREEN,URINE NEGATIVE (NEG <=25); UR TRICYCLIC ANTIDEPRESSANTS NEGATIVE (NEG <=300); URINE AMPHETAMINE NEGATIVE (NEG <=500); URINE METHADONE NEGATIVE (NEG <=200); URINE OXYCODONE SCREEN NEGATIVE (NEG <=100); URINE PROPOXYPHENE SCREEN NEGATIVE (NEG <=300)
[2020-09-26 01:50] LABS: BACTERIA,URINE MANY /HPF (None Seen); WBC,URINE >100 /HPF (0-3)
[2020-09-26 01:52] LABS: ALBUMIN 2.6 g/dL (3.4-4.8); TOTAL BILIRUBIN 0.7 mg/dL (0.0-1.0)
[2020-09-26] MEDS ORDERED: cefTRIAXone 1 GM in D5W 50 ML IV ONE (02:45)
[2020-09-26] MEDS ORDERED: cefTRIAXone 1 GM VIAL ONE (02:51)
[2020-09-26] MEDS ORDERED: CEPH250C PO (06:12)
[2020-09-26 07:20] VITALS: BP_SYST 99
== END 2020-09-26 07:20 | disposition home or self-care (01) ==
LOC: SED 00:52
DX: R56.9 Unspecified convulsions (principal); N39.0 Urinary tract infection, site not specified; I10 Essential (primary) hypertension; F03.90 Unspecified dementia, unspecified severity, without behavioral disturbance, psychotic disturbance, mood disturbance, and anxiety; Z88.8 Allergy status to other drugs, medicaments and biological substances; Z79.899 Other long term (current) drug therapy
CPT/HCPCS: 36415; 71045; 80053; 80307; 81000; 85025; 87040; 87086; 93005; 96365; 99291; J0696